=== PATIENT | male | born 1970 | race Caucasian/White ===

== ENCOUNTER 2018-01-07 09:43 | Day surgery (SDC) | payer OTHER ==
[2018-01-05 10:57] VITALS: BMI 27.7
[~2018-01-07 09:43] MED LIST: LACTATED RINGERS 1,000 ML IV SCH; LIDOCAINE 1% 20 ML VIAL (10MG/ML) FOR IV START INTRADERMA PRN; MIDAZOLAM 2 MG/2 ML VIAL IV PRN
[2018-01-07] MEDS ORDERED: LIDOCAINE 1% 20 ML VIAL (10MG/ML) FOR IV START INTRADERMA ONE (10:17)
[2018-01-07 10:27] VITALS: RESP 16; TEMP 97.9
[2018-01-07] MEDS ORDERED: LIDOCAINE 1% INJ 10MG/ML (20 ML MDV) ONE (11:42)
[2018-01-07] MEDS ORDERED: PROPOFOL 10 MG/ML 20 ML VIAL IV ONE (11:42)
--- NOTE | 2018-01-07 11:46 | P.GSHP ---
History of Present Illness H&P Date: 01/07/18 Chief Complaint: Diarrhea, colitis This a 47-year-old male who's had issues with significant diarrhea. Patient is also had abdominal pain. He presents today for colonoscopy. Past Medical History Additional Past Medical History / Comment(s): HAS BEEN HAVING BOUTS OF DIARRHEA FOR PAST COUPLE MONTHS PER PT History of Any Multi-Drug Resistant Organisms: None Reported Past Surgical History: No Surgical Hx Reported Past Anesthesia/Blood Transfusion Reactions: No Reported Reaction Additional Past Anesthesia/Blood Transfusion Reaction / Comment(s): NO PRIOR SX HX Smoking Status: Former smoker - Past Family History Father Family Medical History: Cancer Medications and Allergies Home Medications Medication Instructions Recorded Confirmed Type No Known Home Medications [No 01/05/18 01/05/18 History Known Home Medications] Allergies Allergy/AdvReac Type Severity Reaction Status Date / Time No Known Allergies Allergy Verified 01/05/18 10:54 Surgical - Exam Vital Signs Temp Pulse Resp BP Pulse Ox 97.9 F 66 16 127/81 97 01/07/18 10:22 01/07/18 10:22 01/07/18 10:22 01/07/18 10:22 01/07/18 10:22 - General well developed, no distress, moderate distress - Eyes PERRL - ENT normal pinna - Neck no masses - Respiratory normal expansion - Cardiovascular Rhythm: regular - Abdomen Abdomen: soft, non tender Assessment and Plan Assessment: Diarrhea, colitis. We'll perform colonoscopy.
--- NOTE | 2018-01-07 11:57 | P.OP ---
Date of Procedure: 01/07/18 Preoperative Diagnosis: Colitis Postoperative Diagnosis: Rectal polyp Procedure(s) Performed: Colonoscopy Anesthesia: MAC Surgeon: Tim Clarke Pathology: other (Rectal polyp) Condition: stable Disposition: PACU Description of Procedure: PROCEDURE: The patient was placed on the endoscopy table in the lateral position. Digital rectal examination was performed which revealed no abnormalities. The prostate was symmetrical without nodules. Flexible colonoscope was then placed in the patient's anus and passed throughout the entire colon. The ileocecal valve was visualized. The cecum, ascending, transverse, descending and sigmoid colon were normal. In the rectum there was a small sessile polyp. This removed with the cold forceps. The scope was withdrawn. And there was no significant internal and external hemorrhoids.
[2018-01-07 12:27] VITALS: BP 121/89; PULSE 61
== END 2018-01-07 12:39 | disposition home or self-care (01) ==
LOC: ORWHC2ENDO 09:43
PROVIDERS: ATTEND Surgery
DX: D12.8 Benign neoplasm of rectum (principal); K52.9 Noninfective gastroenteritis and colitis, unspecified; Z87.891 Personal history of nicotine dependence
CPT/HCPCS: 45380; J2001; J2704; 88305

== ENCOUNTER → 2022-06-24 | Outpatient (CLI) | payer BC ==
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
--- NOTE | 2022-06-24 12:33 | XR ---
EXAMINATION TYPE: XR ribs LT DATE OF EXAM: 06/24/2022 COMPARISON: NONE HISTORY: Pain TECHNIQUE: 5 views of the left ribs are submitted. FINDINGS: there is a displaced fracture involving the anterior lateral left sixth and seventh ribs. Fracture through the anterolateral left fifth rib also suspected. Limited assessment lungs demonstrat es no definite acute sizable pneumothorax. IMPRESSION: 1. Displaced fractures involving the anterolateral left sixth and seventh ribs. SPECT Fracture through the anterolateral left fifth rib.
== END | disposition home or self-care (01) ==
LOC: RADXRMAIN 11:55
PROVIDERS: ATTEND Family Medicine
DX: S22.32XA Fracture of one rib, left side, initial encounter for closed fracture (principal); V86.56XA Driver of dirt bike or motor/cross bike injured in nontraffic accident, initial encounter
CPT/HCPCS: 71046

== ENCOUNTER 2025-02-04 12:47 | Emergency (ER) | payer BC, OTHER ==
--- NOTE | 2025-02-04 13:38 | ED ---
Back Pain HPI - General Chief Complaint: Back Pain/Injury Stated Complaint: Lower right back pain Time Seen by Provider: 02/04/25 13:03 Source: patient, RN notes reviewed Limitations: no limitations - History of Present Illness Initial Comments: This is a 54-year-old male presenting with right low back pain (7/10) x 3 weeks. Patient states he has a lifelong history of left hip pain/issues, causing him to compensate with weightbearing on right leg. Patient states he suspects compensation is causing this new low back pain that is radiating to his right hip. States pain worsens when seated for long durations and improves after ambulating for some time. Denies RLE radiculopathy or paresthesia. Denies recent trauma or fall. Patient states he has an appointment with orthopedics on 02/13/2025 to have an x-ray performed, stating he is not unable to wait that long due to severity of pain. Denies fever, chills, saddle paresthesia, urinary incontinence/retention, other urinary symptoms. MD Complaint: back pain Onset/Timin -: week(s) Radiation: other (Right hip) Severity scale (1-10): 7 Improves With: walking Worsens With: movement, sitting upright Associated Symptoms: denies other symptoms Treatments Prior to Arrival: NSAIDS - Related Data Home Medications Medication Instructions Recorded Confirmed No Known Home Medications 01/05/18 01/05/18 Allergies Allergy/AdvReac Type Severity Reaction Status Date / Time No Known Allergies Allergy Verified 02/04/25 13:00 Review of Systems ROS Statement: Those systems with pertinent positive or pertinent negative responses have been documented in the HPI. ROS Other: All systems not noted in ROS Statement are negative. Past Medical History Past Medical History: No Reported History History of Any Multi-Drug Resistant Organisms: None Reported Past Surgical History: No Surgical Hx Reported Past Psychological History: No Psychological Hx Reported Smoking Status: Former smoker Past Alcohol Use History: Occasional Past Drug Use History: None Reported General Exam Limitations: no limitations General appearance: alert, in no apparent distress Head exam: Present: atraumatic, normocephalic, normal inspection Eye exam: Present: normal appearance, PERRL, EOMI. Absent: scleral icterus, conjunctival injection, periorbital swelling ENT exam: Present: normal exam, mucous membranes moist Neck exam: Present: normal inspection. Absent: tenderness, meningismus, lymphadenopathy Respiratory exam: Present: normal lung sounds bilaterally. Absent: respiratory distress, wheezes, rales, rhonchi, stridor, accessory muscle use Cardiovascular Exam: Present: regular rate, normal rhythm, normal heart sounds. Absent: systolic murmur, diastolic murmur, rubs, gallop, clicks GI/Abdominal exam: Present: soft, normal bowel sounds. Absent: distended, tenderness, guarding, rebound, rigid Extremities exam: Present: normal inspection, full ROM, normal capillary refill. Absent: tenderness, pedal edema, joint swelling, calf tenderness Back exam: Present: muscle spasm, paraspinal tenderness (Positive right paralumbar muscle spasm and point tenderness). Absent: vertebral tenderness Neurological exam: Present: alert, oriented X3, CN II-XII intact Psychiatric exam: Present: normal affect, normal mood Skin exam: Present: warm, dry, intact, normal color. Absent: rash Course Vital Signs 02/04/25 02/04/25 12:57 15:28 Temperature 98 F 98.1 F Pulse Rate 55 L 53 L Respiratory 16 18 Rate Blood Pressure 126/74 127/84 O2 Sat by Pulse 97 98 Oximetry Medical Decision Making - Medical Decision Making Was pt. sent in by a medical professional or institution (, PA, RECRUITMENT SPECIALIST, urgent care, hospital, or fci...) When possible be specific @ -No Did you speak to anyone other than the patient for history (EMS, parent, family, police, friend...)? What history was obtained from this source @ -No Did you review nursing and triage notes (agree or disagree)? Why? @ -I reviewed and agree with nursing and triage notes Were old charts reviewed (outside hosp., previous admission, EMS record, old EKG, old radiological studies, urgent care reports/EKG's, fci records)? Report findings @ -No old charts were reviewed Differential Diagnosis (chest pain, altered mental status, abdominal pain women, abdominal pain men, vaginal bleeding, weakness, fever, dyspnea, syncope, headache, dizziness, GI bleed, back pain, seizure, CVA, palpatations, mental health, musculoskeletal)? @ -Differential Back Pain: Strain, zoster, cauda equina syndrome, epidural abscess, vertebral osteomyelit is, discitis, fracture, subluxation, disc herniation, DJD, spinal stenosis, dissection, AAA, pancreatitis, peptic ulcer disease, pyelonephritis, kidney stone, this is not meant to be an all-inclusive list. EKG interpreted by me (3pts min.). @ -Not done X-rays interpreted by me (1pt min.). @ -Lumbar x-ray shows multilevel DDD from L1-L5. No spinal fracture, misalignment, spondylosis or spondylolisthesis. Moderate degeneration noted at L5-S1 with moderate narrowing, vacuum phenomena and spondylosis. CT interpreted by me (1pt min.). @ -None done U/S interpreted by me (1pt. min.). @ -None done What testing was considered but not performed or refused? (CT, X-rays, U/S, labs)? Why? @ -None What meds were considered but not given or refused? Why? @ -Patient declined all NSAIDs, Tylenol, Norflex for pain management, stating he will take Aleve at home. Did you discuss the management of the patient with other professionals (professionals i.e. , PA, RECRUITMENT SPECIALIST, lab, RT, psych nurse, social security specialist, regulatory law specialist, teacher, chief strategy officer, home health care case manager)? Give summary @ -No Was smoking cessation discussed for >3mins.? @ -No Was critical care preformed (if so, how long)? @ -No Were there social determinants of health that impacted care today? How? (Homelessness, low income, unemployed, alcoholism, drug addiction, transportation, low edu. Level, literacy, decrease access to med. care, half-way, rehab)? @ -No Was there de-escalation of care discussed even if they declined (Discuss DNR or withdrawal of care, Hospice)? DNR status @ -No What co-morbidities impacted this encounter? (DM, HTN, Smoking, COPD, CAD, Cancer, CVA, ARF, Chemo, Hep., AIDS, mental health diagnosis, sleep apnea, morbid obesity)? @ -None Was patient admitted / discharged? Hospital course, mention meds given and route, prescriptions, significant lab abnormalities, going to OR and other pertinent info. @ -UA unremarkable. Lumbar spine x-ray shows multilevel degenerative disease without fracture, misalignment, spondylolisthesis or spondylosis. Moderate degeneration noted at L5-S1 with moderate narrowing, vacuum phenomena and spondylosis. Patient declined most pain medication offered accepted lidocaine patch, noting some pain relief. Advised warm compress for 10 minutes up to 4 times daily along with gentle massage and stretching of affected area. Follow- up with orthopedics for ongoing management of low back pain. Discussed patient with Dr. Moran. Undiagnosed new problem with uncertain prognosis? @ -No Drug Therapy requiring intensive monitoring for toxicity (Heparin, Nitro, Insulin, Cardizem)? @ -No Were any procedures done? @ -No Diagnosis/symptom? @ -Lumbar spine degenerative disc disease Acute, or Chronic, or Acute on Chronic? @ -Acute Uncomplicated (without systemic symptoms) or Complicated (systemic symptoms)? @ -Uncomplicated Side effects of treatment? @ -No Exacerbation, Progression, or Severe Exacerbation? @ -No Poses a threat to life or bodily function? How? (Chest pain, [place], [place], pneumonia, PE, COPD, DKA, ARF, appy, cholecystitis, CVA, Diverticulitis, Homicidal, Suicidal, threat to staff... and all critical care pts) @ -No - Lab Data Lab Results 02/04/25 Range/Units 13:01 Urine Color Light Yellow Urine Appearance Clear (Clear) Urine pH 5.5 (5.0-8.0) Ur Specific [place] 1.018 (1.001-1.035) Urine Protein Negative (Negative) Urine Glucose (UA) Negative (Negative) Urine Ketones Negative (Negative) Urine Blood Negative (Negative) Urine Nitrite Negative (Negative) Urine Bilirubin Negative (Negative) Urine Urobilinogen <2.0 (<2.0) mg/dL Ur Leukocyte Esterase Negative (Negative) Disposition Clinical Impression: DDD (degenerative disc disease), lumbosacral Disposition: HOME SELF-CARE Condition: Fair Instructions (If sedation given, give patient instructions): Acute Low Back Pain (ED), Degenerative Disc Disease (ED) Additional Instructions: Alternate Tylenol/Motrin every 4 hours for pain. Warm compress/heating pad for 15 minutes up to 4 times daily along with gentle stretching massage. Follow-up with scheduled appointment on 02/13/2025 for further evaluation and workup. Is patient prescribed a controlled substance at d/c from ED?: No Referrals: Zack Beard DO [Primary Care Provider] - 1-2 days [facility] [Provider Group] - 1-2 days [facility] [Provider Group] - 1-2 days Time of Disposition: 15:26
[2025-02-04 13:41] LABS: Appearance,Urine Clear (Clear); Bilirubin,Urine Negative (Negative); Blood,Urine Negative (Negative); Color,Urine Light Yellow; Glucose,Urine (UA) Negative (Negative); Ketones,Urine Negative (Negative); Leukocyte Esterase,Urine Negative (Negative); Nitrite,Urine Negative (Negative); PH, Urine 5.5 (5.0-8.0); Protein,Urine Negative (Negative); Specific Gravity,Urine 1.018 (1.001-1.035); Urobilinogen,Urine <2.0 mg/dL (<2.0)
--- NOTE | 2025-02-04 14:07 | XR ---
Lumbar spine. HISTORY: Back pain. COMPARISON: None. TECHNIQUE: 5 views lumbar spine were obtained. FINDINGS: The lumbar vertebral segments are normal in height and alignment there is no fracture or subluxation. There is no spondylolysis or spondylolisthesis. There is multilevel mild degenerative disc disease from L1 through L5 where there is mild disc space narrowing and spondylosis. There is moderate degenerative disease at the L5-S1 level where there is m oderate narrowing, vacuum phenomenon and spondylosis. There is mild degeneration of the facet joints in the lower lumbar spine. IMPRESSION: 1. No lumbar spine fracture or malalignment. 2. Multilevel degenerative disease as described above. 3. No spondylolysis or spondylolisthesis. [facility], , 02/04/2025 2:04 PM
[2025-02-04 15:28] VITALS: BP 127/84; PULSE 53; RESP 18; TEMP 98.1
[2025-02-04] MEDS: LIDOCAINE 4% PATCH TOPICAL ONE (15:29)
== END 2025-02-04 15:41 | disposition home or self-care (01) ==
LOC: EC 12:47
DX: M51.379 Other intervertebral disc degeneration, lumbosacral region without mention of lumbar back pain or lower extremity pain (principal); Z87.891 Personal history of nicotine dependence
CPT/HCPCS: 72110; 81003; 99284